=== PATIENT | male | born 1990 | race Caucasian/White ===

== ENCOUNTER 2024-02-11 03:23 | Emergency (ER) | payer SELFPAY ==
[~2024-02-11] VITALS: Ht 185.4 cm; Wt 93.0 kg
[2024-02-11 03:36] VITALS: BP_SYST 139; PULSE 83; RESP 20; TEMP 98; O2SAT 98
[2024-02-11] MEDS: KETOROLAC TROMETHAMINE 30 MG VIAL IM ONE (04:00)
[2024-02-11] MEDS: DIPHTH,PERTUSS(ACELL),TET VAC 0.5 ML VIAL (Tdap) I.M. ONE (04:00)
[2024-02-11 04:46] VITALS: BP_SYST 139; PULSE 80; RESP 20; TEMP 98; O2SAT 98
== END 2024-02-11 04:46 | disposition home or self-care (01) ==
LOC: SED 03:23
DX: S61.412A Laceration without foreign body of left hand, initial encounter (principal); W26.8XXA Contact with other sharp object(s), not elsewhere classified, initial encounter; Y93.89 Activity, other specified; Y92.89 Other specified places as the place of occurrence of the external cause; Y99.8 Other external cause status
CPT/HCPCS: 99284; 73130; 90715; 90471; 12001; 96372; J1885